=== PATIENT | male | born 1985 | race Caucasian/White ===

== ENCOUNTER → 2019-04-30 | Day surgery (SDC) | payer OTHER ==
[2019-04-26 12:13] LABS: BASOPHILS % 0.6 % (0.0-1.0); EOSINOPHILS # (AUTO) 0.1 (0.0-0.4); EOSINOPHILS % 2.1 % (0.0-6.0); HEMATOCRIT 43.9 % (38.2-49.6); LYMPHOCYTES # (AUTO) 2.6 (1.0-3.2); LYMPHOCYTES % 41.8 % (18.0-39.1); MEAN CORPUSCULAR HEMOGLOBIN 29.7 pg (28-32); MEAN CORPUSCULAR HGB CONC 34.2 g/dL (31-35); MEAN CORPUSCULAR VOLUME 86.9 fL (81-99); MONOCYTES # (AUTO) 0.3 (0.2-0.8); MONOCYTES % 4.4 % (4.4-11.3); NEUTROPHILS # (AUTO) 3.1 (2.1-6.9); NEUTROPHILS % 50.5 % (38.7-80.0); PLATELET COUNT 275 x10e3/uL (140-360); RED BLOOD COUNT 5.05 x10e6/uL (4.3-5.7); RED CELL DISTRIBUTION WIDTH 12.6 % (11.7-14.4)
[2019-04-26 12:31] LABS: ANION GAP 11.1 mmol/L (8-16); BLOOD UREA NITROGEN 13 mg/dL (7-26); BUN/CREATININE RATIO 12 (6-25); CALCIUM 9.8 mg/dL (8.4-10.2); CARBON DIOXIDE 28 mmol/L (22-29); CHLORIDE 103 mmol/L (98-107); CREATININE, SERUM 1.11 mg/dL (0.72-1.25); EST GLOMERULAR FILTRATION RATE > 60 ML/MIN (60-); GLUCOSE 88 mg/dL (74-118); POTASSIUM 4.1 mmol/L (3.5-5.1); SODIUM 138 mmol/L (136-145)
[~2019-04-30] MED LIST: ACETAMINOPHEN 1000 MG/100 ML 100 ML IV ONE; ACETAMINOPHEN 1000 MG/100 ML IV ONE; ADDERALL 20 MG20 MG PO; BUPIVACAINE 0.25%/EPI 30ML SDV INJ ONE; DEXAMETHASONE SOD PHOS INJ 4 MG/ML VIAL ONE; FENTANYL CITRATE/PF 100MCG/2 ML INJ ONE; HYDROCODONE/APAP 7.5MG-325MG 1 EA TAB ONE; KETOROLAC TROMETHAMINE 30 MG/ML VIAL ONE; LIDOCAINE HCL 2% LOCAL INJ 5 ML SDV VIAL INJ ONE; MIDAZOLAM HCL 2 MG/2 ML VIAL ONE; ONDANSETRON HCL INJ 2MG/ML 2ML 2 MG/ML VIAL ONE; PROPOFOL IV EMULSION 10 MG/ML 20 ML VIAL ONE; ROCURONIUM BROMIDE 10 MG/ML 5ML VIAL ONE; SEVOFLURANE INHAL SOLN 250 ML PEN BTL ONE
[2019-04-30 13:23] VITALS: BP 104/66
--- NOTE | 2019-04-30 19:38 | Operative Report ---
DATE OF PROCEDURE: 04/30/2019 SURGEON: Terrence Monsalve MD PREOPERATIVE DIAGNOSIS: Incarcerated umbilical and epigastric hernias. POSTOPERATIVE DIAGNOSIS: Incarcerated umbilical and epigastric hernias. OPERATION PERFORMED: Repair of incarcerated umbilical epigastric hernias with Ventralex patch. [employer]: KIMBER Null. ANESTHESIA: General. COMPLICATIONS: None estimated. BLOOD LOSS: Minimal DESCRIPTION OF PROCEDURE: With the patient lying in bed in the supine position under good general endotracheal anesthesia, the abdomen was prepped with Betadine solution and draped in the usual manner. A semilunar subumbilical incision was made. It was carried down through the subcutaneous tissue and the hernia sac was then identified and followed all the way down to the fascia. The fascia was then dissected circumferentially all the way around the hernia sac. The umbilicus was then detached from the hernia sac. A second small hernia sac representing the epigastric defect was similarly dissected all the way around. The umbilical hernia sac was then opened and the adhesions to the omentum were then taken down and the omentum was reduced back to the intraabdominal cavity. The excess of the hernia sac was resected. Similarly, the incarceration of the epigastric hernia was similarly reduced. The epigastric defect was then closed with interrupted sutures of 0 Ethibond. A large Ventralex patch was then placed through the umbilical defect, make sure that it covered both hernias without any difficulty and the mesh was then anchored with interrupted sutures of 0 Ethibond and the hernia defect was closed with interrupted 0 Ethibond anchoring the mesh on the way out. The whole area was thoroughly irrigated. Perfect hemostasis was ascertained. The fascia was then infiltrated with 0.25% Marcaine. The umbilicus then tacked back down to the midline fascia with 3-0 Vicryl. The subcutaneous tissue was approximated with 3-0 Vicryl and the skin was closed with interrupted vertical mattress sutures of 3-0 silk. A dressing was applied. The sponge, lap, and needle count was correct. The patient tolerated the procedure well and returned to the recovery room in stable condition. MD SATHISH Vasquez/LEONELL /[id number]
== END | disposition home or self-care (01) ==
LOC: OR 08:34
PROVIDERS: ATTEND Surgery
DX: K42.0 Umbilical hernia with obstruction, without gangrene (principal); K43.6 Other and unspecified ventral hernia with obstruction, without gangrene; Z01.812 Encounter for preprocedural laboratory examination
CPT/HCPCS: 36415; 49572; 49587; 80048; 85025; C1781; J0131; J1100; J1885; J2001; J2250; J2405; J2704; J3010